=== PATIENT | female | born 1975 | race Hispanic/Latino ===

== ENCOUNTER 2019-01-17 19:15 | Emergency (ER) | payer OTHER ==
[2019-01-17 19:25] VITALS: BP 128/76; PULSE 72; RESP 16; TEMP 98.5; O2SAT 98
[2019-01-17] MEDS ORDERED: Lidocaine 1% Inj (20ml) ONE (20:00)
[2019-01-17] MEDS ORDERED: Povidone Iodine Oint 10% Foilpak UD ONE (20:19)
--- NOTE | 2019-01-17 21:11 | ED PDOC ---
Upper Extremity Pain/Injury Time Seen by Provider: 01/17/19 20:00 Chief Complaint (Nursing): Finger,Hand,&Wrist Chief Complaint (Provider): hand laceration History Per: Patient Onset/Duration Of Symptoms: Hrs Current Symptoms Are (Timing): Still Present Severity: Mild Pain Scale Rating Of: 4 Exacerbating Factor(s): Nothing Additional History Per: Patient Additional Complaint(s): 43 year old female presents to left hand laceration sustained with a knife while cutting an avocado and watching her children. Patient states she went to urgent care prior to ED and was told to come here because they were not able to repair it at the urgent care. Patient states her last tetanus was two years ago. Patient is right handed. 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 Past Medical History Reviewed: Historical Data, Nursing Documentation, Vital Signs Vital Signs: Last Vital Signs Temp 98.5 F 01/17/19 19:23 Pulse 72 01/17/19 19:23 Resp 16 01/17/19 19:23 BP 128/76 01/17/19 19:23 Pulse Ox 98 01/17/19 19:23 - Medical History PMH: No Chronic Diseases - Surgical History Surgical History: No Surg Hx - Family History Family History: States: Unknown Family Hx - Immunization History Hx Tetanus Toxoid Vaccination: Yes (2 years ago ) - Home Medications Home Medications: Ambulatory Orders Medication Instructions Recorded Cephalexin [Keflex] 500 mg PO Q12H #14 capsule 01/17/19 - Allergies Allergies/Adverse Reactions: Allergies Allergy/AdvReac Type Severity Reaction Status Date / Time No Known Allergies Allergy Verified 01/17/19 19:23 Review of Systems ROS Statement: Except As Marked, All Systems Reviewed And Found Negative Musculoskeletal: Positive for: Hand Pain (laceration to left hand ) Physical Exam - Reviewed Nursing Documentation Reviewed: Yes Vital Signs Reviewed: Yes - Physical Exam Appears: Positive for: Well, Non-toxic, No Acute Distress Head Exam: Positive for: ATRAUMATIC, NORMAL INSPECTION, NORMOCEPHALIC Skin: Positive for: Normal Color, Warm, DRY Eye Exam: Positive for: EOMI, Normal appearance, PERRL ENT: Positive for: Normal ENT Inspection Neck: Positive for: Normal, Painless ROM Cardiovascular/Chest: Positive for: Regular Rate, Rhythm Respiratory: Positive for: CNT, Normal Breath Sounds Gastrointestinal/Abdominal: Positive for: Normal Exam, Soft Back: Positive for: Normal Inspection Extremity: Positive for: Normal ROM, Capillary Refill (<2 secs cap refill ), Other (left hand laceration, shear laceration 2cm in length, 0.5cm in depth, clean edges. extensor/flexor tendon of 1st and 2nd digit intact. ). Negative for: Swelling Neurological/Psych: Positive for: Awake, Alert, Normal Tone, Oriented - ECG O2 Sat by Pulse Oximetry: 98 Medical Decision Making Medical Decision Making: Patient tolerated wound laceration well, bacitricin applied with telfa and brain, kandice wrap applied by me. nuero and vascularly intact post application. patient educated on wound care and instructed to return to ed or pmd in 7-10 days for suture removal or sooner if noted signs of infection. Patient given rx for keflex prophalaxis. Patient states understanding and agrees with plan. patient stable for D/C home. Procedures - Time-Out Type of Procedure: laceration repair Site of Procedure: left hand Correct Patient: Yes Correct Procedure: Yes Correct Site Marked: NA X-Ray Marked: NA Medication Recon: No PA/Tech: Cris Dorado APN - Laceration/Wound Repair Right Hand Wound's Depth, Shape: into muscle, linear Wound Explored: no foreign body removed Irrigated w/ Saline (ccs): 75 Betadine Prep?: Yes Anesthesia: 1% Lidocaine Volume Anesthetic (ccs): 2 Wound Debrided: minimal Wound Repaired With: Sutures Suture Size/Type: 5:0, proline Number of Sutures: 6 Layer Closure?: No Wound Complexity: Simple Sterile Dressing Applied?: Yes Splint Applied?: No Disposition - Clinical Impression Clinical Impression: Hand laceration - Patient ED Disposition Is Patient to be Admitted: No Counseled Patient/Family Regarding: Diagnosis, Rx Given - Disposition Disposition: Routine/Home Disposition Time: 21:00 Condition: GOOD Prescriptions: Cephalexin [Keflex] 500 mg PO Q12H #14 capsule Instructions: Laceration Repair With Stitches (DC) Print Language: SPANISH - POA Present On Arrival: None
== END 2019-01-17 21:22 | disposition home or self-care (01) ==
LOC: H.ER 19:15
DX: S61.412A Laceration without foreign body of left hand, initial encounter (principal); W26.0XXA Contact with knife, initial encounter; Y93.G1 Activity, food preparation and clean up